=== PATIENT | male | born 1995 | race Hispanic/Latino ===

== ENCOUNTER 2017-09-08 15:22 | Emergency (ER) | payer SELFPAY ==
[2017-09-08 15:28] VITALS: BP 142/84; PULSE 88; RESP 19; TEMP 98.1; O2SAT 100
--- NOTE | 2017-09-08 15:46 | ED PDOC ---
HPI: Abdomen Time Seen by Provider: 09/08/17 15:29 Chief Complaint (Nursing): Groin Pain Chief Complaint (Provider): Groin Pain, leg pain History Per: Patient History/Exam Limitations: no limitations Onset/Duration Of Symptoms: Hrs Current Symptoms Are (Timing): Still Present Quality Of Discomfort: "Pain" Additional Complaint(s): 22 year old male presents with pain to right groin region and right thigh. Patient sustained injury 2 weeks ago while lifting at the gym. He was seen by his primary doctor who referred him to a surgeon to rule out a possible hernia. Patient states today he developed pain and numbness to right anterior thigh. Patient did not take anything for pain. He denies any difficulty walking. He rates current pain as 6 out of 10. Patient states pain does not radiate to scrotal region and he denies any dysuria. PMD: Drew Jung in [facility] Past Medical History Reviewed: Historical Data, Nursing Documentation, Vital Signs Vital Signs: Last Vital Signs Temp 98.1 F 09/08/17 15:25 Pulse 88 09/08/17 15:25 Resp 19 09/08/17 15:25 BP 142/84 09/08/17 15:25 Pulse Ox 100 09/08/17 15:52 - Medical History PMH: No Chronic Diseases - Surgical History Surgical History: No Surg Hx - Family History Family History: States: No Known Family Hx - Living Arrangements Living Arrangements: With Friends/Others - Social History Current smoker - smoking cessation education provided: No Alcohol: Social Drugs: Denies - Allergies Allergies/Adverse Reactions: Allergies Allergy/AdvReac Type Severity Reaction Status Date / Time No Known Allergies Allergy Verified 09/08/17 15:25 Review of Systems ROS Statement: Except As Marked, All Systems Reviewed And Found Negative Constitutional: Negative for: Fever, Chills Musculoskeletal: Positive for: Other (right side groin pain, right thigh pain) Physical Exam - Reviewed Nursing Documentation Reviewed: Yes Vital Signs Reviewed: Yes - Physical Exam Appears: Positive for: Well, Non-toxic, No Acute Distress Head Exam: Positive for: ATRAUMATIC, NORMAL INSPECTION, NORMOCEPHALIC Skin: Positive for: Normal Color, Warm, Dry Eye Exam: Positive for: Normal appearance Neck: Positive for: Normal, Painless ROM Cardiovascular/Chest: Positive for: Regular Rate, Rhythm Respiratory: Positive for: Normal Breath Sounds. Negative for: Respiratory Distress Gastrointestinal/Abdominal: Positive for: Normal Exam, Soft. Negative for: Tenderness Back: Positive for: Normal Inspection Extremity: Positive for: Normal ROM, Other (Mild tenderness right groin region with no swelling or evidence of hernia, slight tenderness and swelling to right anterior thigh with full range of motion of right lower extremity). Negative for: Deformity, Swelling Neurologic/Psych: Positive for: Alert, Oriented - ECG O2 Sat by Pulse Oximetry: 100 (RA) Pulse Ox Interpretation: Normal Medical Decision Making Medical Decision Making: Time: 15:50 Initial Impression: 22 year old male wit patient hasn't h right groin pain and right thigh pain Pain meds declined in ED. Patient was instructed to take ibuprofen every 6 hours for pain and swelling and to rest the affected area. He has follow up next week with surgeon. Patient is aware he can return to emergency department at any time if acutely worse. Scribe Attestation: Documented by Milena Hernandez, acting as a scribe for Sarah Siddiqi PA-C Provider Scribe Attestation: All medical record entries made by the Scribe were at my direction and personally dictated by me. I have reviewed the chart and agree that the record accurately reflects my personal performance of the history, physical exam, medical decision making, and the department course for this patient. I have also personally directed, reviewed, and agree with the discharge instructions and disposition. Disposition - Clinical Impression Clinical Impression: Groin pain, Muscle strain - Patient ED Disposition Is Patient to be Admitted: No Counseled Patient/Family Regarding: Diagnosis, Need For Followup - Disposition Referrals: [facility] [Outside] Disposition: Routine/Home Disposition Time: 16:04 Condition: STABLE Additional Instructions: Take 3 advil every 6 hrs for pain and swelling. Rest, ice and elevate affected area. Monitor symptoms and return any time if worse, otherwise follow up as scheduled with surgeon. Instructions: Muscle Strain (DC), Groin Strain Forms: [facility] [facility] ([place])
== END 2017-09-08 16:17 | disposition home or self-care (01) ==
LOC: SUPCPDRO 15:22 → H.ER 15:22
DX: R10.30 Lower abdominal pain, unspecified (principal); M79.604 Pain in right leg